=== PATIENT | female | born 2000 | race Caucasian/White ===

== ENCOUNTER 2021-09-10 23:53 | Emergency (ER) | payer MEDICAID ==
[~2021-09-10] VITALS: Ht 167.6 cm; Wt 54.0 kg
[2021-09-11 00:25] LABS: Urine Bacteria FEW /hpf (None Seen); Urine Blood 2+ /uL (Negative); Urine Mucus FEW (None Seen); Urine Specific Gravity 1.021 (1.001-1.035); Urine WBC 380 /hpf (0 - 5)
[2021-09-11] MEDS ORDERED: KETOROLAC TROMETH 30 MG/ML 1ML VIAL IV ONE (03:30)
[2021-09-11] MEDS ORDERED: SODIUM CHLORIDE 0.9% 1,000 ML IV ONE (03:30)
[2021-09-11] MEDS ORDERED: LEVE500T32 PO (06:47)
[2021-09-11] MEDS ORDERED: CEFTRIAXONE SODIUM 2 GM in D5W 5% 50 ML IV ONE ×4 (07:00)
[2021-09-11 07:41] VITALS: BP 105/59
== END 2021-09-11 07:54 | disposition home or self-care (01) ==
LOC: ER 23:53
DX: N12 Tubulo-interstitial nephritis, not specified as acute or chronic (principal); Z32.02 Encounter for pregnancy test, result negative
CPT/HCPCS: 74176; 81001; 81025; 96361; 96374; 99284; J0696; J1885; J7030; J7060

== ENCOUNTER 2022-05-14 15:36 | Emergency (ER) | payer MEDICAID ==
[~2022-05-14] VITALS: Ht 167.6 cm; Wt 55.0 kg
[2022-05-14 17:11] VITALS: BP 120/84
[2022-05-14] MEDS ORDERED: ALBUTEROL SULF 2.5 MG/0.5ML(0.5%) NEB SOLN NEB ONE (17:45)
[2022-05-14] MEDS ORDERED: methylPREDNISolone SOD SUCC 125 MG/2 ML VL IM ONE (17:45)
[2022-05-14] MEDS ORDERED: IPRATROPIUM BROM 0.5 MG/2.5ML INH SOL NEB ONE (17:45)
[2022-05-14] MEDS ORDERED: METH4PAK PO (18:12)
== END 2022-05-14 18:24 | disposition home or self-care (01) ==
LOC: ER 15:36
DX: J45.901 Unspecified asthma with (acute) exacerbation (principal); R07.89 Other chest pain
CPT/HCPCS: 71045; 96372; 99283; J2930; J7644

== ENCOUNTER 2023-05-03 18:43 | Emergency (ER) | payer MEDICAID ==
[~2023-05-03] VITALS: Ht 167.6 cm; Wt 52.1 kg
[~2023-05-03 18:43] MED LIST: METH4PAK PO
[2023-05-03 18:49] VITALS: BP 137/85; PULSE 113; TEMP 99.5
[2023-05-03] MEDS ORDERED: ALBUTEROL MEDNEB 2.5 mg/3ml NEB NEB ONE (20:45)
[2023-05-03] MEDS ORDERED: IPRATROPIUM BROM 0.5 MG/2.5ML INH SOL NEB ONE (20:45)
[2023-05-03 21:07] VITALS: RESP 16; O2SAT 91
[2023-05-03] MEDS ORDERED: ALBUAER3 IN (22:15)
[2023-05-03] MEDS ORDERED: AZITTAB PO (22:15)
[2023-05-03] MEDS ORDERED: BECL80AE11 IN (22:15)
[2023-05-03] MEDS ORDERED: PRED20TA2 PO (22:15)
[2023-05-03] MEDS ORDERED: BENZ200C64 PO (22:15)
[2023-05-03] MEDS ORDERED: ALBU1.258 IN (22:15)
== END 2023-05-03 22:34 | disposition home or self-care (01) ==
LOC: ER 18:43
DX: J45.901 Unspecified asthma with (acute) exacerbation (principal); R07.89 Other chest pain; F17.210 Nicotine dependence, cigarettes, uncomplicated; Z76.0 Encounter for issue of repeat prescription
CPT/HCPCS: 71045; 94640; 99283; J7644

== ENCOUNTER 2023-08-07 11:02 | Emergency (ER) | payer MEDICAID ==
[~2023-08-07] VITALS: Ht 167.6 cm; Wt 53.0 kg
[~2023-08-07 11:02] MED LIST changes: +ALBU1.258 IN; +ALBUAER3 IN; +AZITTAB PO; +BECL80AE11 IN; +BENZ200C64 PO; +PRED20TA2 PO
[2023-08-07 11:27] VITALS: BP 123/96; PULSE 107
[2023-08-07 11:28] LABS: Basophils # (auto) 0 10 ^3/uL (0-0.2); Basophils % (auto) 0.2 % (0.0-2.0); Eosinophils # (auto) 0.5 10 ^3/uL (0-0.8); Eosinophils % (auto) 5.4 % (0.0-7.0); Hematocrit 48.5 % (36.0-46.0); Hemoglobin 16.5 g/dL (12.2-16.2); Lymphocytes # (auto) 0.9 10 ^3/uL (0.4-5.4); Lymphocytes % (auto) 10.5 % (10.0-50.0); Mean Corpuscular Hemoglobin 30.4 pg (28.0-32.0); Mean Corpuscular Volume 89.6 fL (80.0-100.0); Monocytes # (auto) 0.4 10 ^3/uL (0-1.3); Monocytes % (auto) 5.1 % (0.0-12.0); Neutrophils # (auto) 6.9 10 ^3/uL (1.6-8.6); Neutrophils % (auto) 78.8 % (37.0-80.0); Red Blood Cells 5.41 10^6/uL (4.0-5.20); White Blood Cell 8.8 10^3/uL (4.4-10.8)
[2023-08-07] MEDS: methylPREDNISolone SOD SUCC 125 MG/2 ML VL IV ONE (11:29)
[2023-08-07] MEDS: ALBUTEROL SULF 2.5 MG/0.5ML(0.5%) NEB SOLN HHN ONE (11:32)
[2023-08-07] MEDS: IPRATROPIUM BROM 0.5 MG/2.5ML INH SOL HHN ONE (11:32)
[2023-08-07 11:39] LABS: Chloride 107 mmol/L (98-107); Potassium 3.7 mmol/L (3.5-5.1); Sodium 139 mmol/L (136-145)
[2023-08-07 11:40] LABS: Anion Gap 9 (5-15); Carbon Dioxide 23 mmol/L (20-30)
[2023-08-07 11:41] LABS: Calcium 9.8 mg/dL (8.5-10.1)
[2023-08-07 11:45] LABS: BUN/Creatinine Ratio 5.7 (10.0-20.0); Blood Urea Nitrogen 5 mg/dL (9-23); Glucose 106 mg/dL (74-106)
[2023-08-07 14:33] VITALS: RESP 22; O2SAT 95
[2023-08-07] MEDS ORDERED: METH4PAK PO (15:21)
[2023-08-07] MEDS ORDERED: AZITTAB PO (15:21)
== END 2023-08-07 15:19 | disposition left against medical advice (07) ==
LOC: ER 11:02
DX: J45.902 Unspecified asthma with status asthmaticus (principal); F17.210 Nicotine dependence, cigarettes, uncomplicated; F15.90 Other stimulant use, unspecified, uncomplicated
CPT/HCPCS: 36415; 71045; 80048; 85025; 94644; 96374; 99285; J2930; J7644

== ENCOUNTER 2023-08-07 20:48 | Inpatient (IN) | payer MEDICAID ==
[~2023-08-07] VITALS: Ht 167.6 cm; Wt 52.3 kg
[2023-08-07] MEDS: ALBUTEROL SULF 2.5 MG/0.5ML(0.5%) NEB SOLN NEB ONE ×2 (21:30→21:31)
[2023-08-07] MEDS: IPRATROPIUM BROM 0.5 MG/2.5ML INH SOL NEB ONE ×2 (21:30→21:31)
[2023-08-07] MEDS: predniSONE 20 MG TAB PO ONE (23:06)
[2023-08-07 23:38] VITALS: PULSE 151; RESP 26; O2SAT 96
[2023-08-08] VITALS (10 sets, daily range): BP systolic 114–132; BP diastolic 79–90; PULSE 102–155; RESP 15–26; TEMP 98.5–98.7; O2SAT 95–99
[2023-08-08] MEDS ORDERED: TEMAZEPAM 15 MG CAP PO PRN
[2023-08-08] MEDS ORDERED: MORPHINE SULFATE INJ 2 MG/ml SYRG IV PRN
[2023-08-08] MEDS ORDERED: ONDANSETRON HCL 4 MG/2 ML VIAL IV PRN
[2023-08-08] MEDS ORDERED: NITROGLYCERIN 0.4 MG SL TAB SL PRN
[2023-08-08 06:18] LABS: Anion Gap 11 (5-15); Carbon Dioxide 21 mmol/L (20-30); Chloride 105 mmol/L (98-107); Potassium 3.7 mmol/L (3.5-5.1); Sodium 137 mmol/L (136-145)
[2023-08-08 06:19] LABS: Calcium 9.7 mg/dL (8.5-10.1)
[2023-08-08 06:24] LABS: Blood Urea Nitrogen 6 mg/dL (9-23); Glucose 126 mg/dL (74-106)
[2023-08-08] MEDS: ACETAMINOPHEN 325 MG TAB PO PRN (08:12)
[2023-08-08] MEDS: methylPREDNISolone SOD SUCC 125 MG/2 ML VL IV SCH (10:02)
[2023-08-08] MEDS: ALBUTEROL SULF 2.5 MG/0.5ML(0.5%) NEB SOLN NEB PRN ×2 (10:36→16:37)
[2023-08-08] MEDS: IPRATROPIUM BROM 0.5 MG/2.5ML INH SOL NEB PRN ×2 (10:36→16:37)
[2023-08-08] MEDS: PANTOPRAZOLE 40 MG TAB PO ONE (12:28)
[2023-08-08 13:03] LABS: COVID19 ANTIGEN SOFIA FIA NEGATIVE (NEGATIVE)
[2023-08-08 13:05] LABS: Rapid Influenza A Negative (Negative); Rapid Influenza B Negative (Negative)
[2023-08-08 13:57] LABS: Alanine Aminotransferase 20 U/L (7-40); Albumin 4.6 g/dL (3.2-4.8); Alkaline Phosphatase 48 U/L (46-116); Anion Gap 9 (5-15); Aspartate Aminotransferase 16 U/L (13-40); BUN/Creatinine Ratio 13.4 (10.0-20.0); Bilirubin, Total 1.4 mg/dL (0.2-1.0); Blood Urea Nitrogen 11 mg/dL (9-23); Calcium 9.7 mg/dL (8.7-10.4); Carbon Dioxide 23 mmol/L (20-30); Chloride 105 mmol/L (98-107); Glucose 109 mg/dL (74-106); Magnesium 2.2 mg/dL (1.6-2.6); Potassium 4.2 mmol/L (3.5-5.1); Sodium 137 mmol/L (136-145)
[2023-08-08 14:39] LABS: Hematocrit 44.2 % (36.0-46.0); Hemoglobin 14.7 g/dL (12.2-16.2); Mean Corpuscular Hemoglobin 29.4 pg (28.0-32.0); Mean Corpuscular Hgb Conc. 33.2 g/dL (32.0-36.0); Mean Corpuscular Volume 88.4 fL (80.0-100.0); Red Cell Distribution Width 13.1 % (11.8-14.3); White Blood Cell 13.8 10^3/uL (4.4-10.8)
[2023-08-08 14:48] LABS: Basophils % (manual) 0 (0.0-2.0); Blast Cells 0; Eosinophils % (manual) 0 (0-7); Metamyelocytes % 0; Myelocytes % 0; Promyelocytes % 0; Reactive Lymphocytes 0
[2023-08-08 16:55] LABS: Band Neutrophils % (manual) 7; Lymphocytes % (manual) 2 (10.0-50.0); Monocytes % (manual) 1 (0-12); Platelet Estimate Adequate
[2023-08-08] MEDS ORDERED: methylPREDNISolone SOD SUCC 40 MG/ML VL IV SCH (22:00)
[2023-08-09] MEDS ORDERED: PANTOPRAZOLE 40 MG TAB PO SCH (10:00)
== END 2023-08-08 18:00 | disposition left against medical advice (07) | DRG 133 ==
LOC: ER 20:48 → TELE 23:48
PROVIDERS: ADMIT Internal Medicine Geriatric Medicine; ATTEND Internal Medicine Geriatric Medicine
DX: J96.01 Acute respiratory failure with hypoxia (principal); J45.902 Unspecified asthma with status asthmaticus; Z53.29 Procedure and treatment not carried out because of patient's decision for other reasons; F17.210 Nicotine dependence, cigarettes, uncomplicated; Z20.822 Contact with and (suspected) exposure to COVID-19; Z83.3 Family history of diabetes mellitus
CPT/HCPCS: 36415; 80048; 80053; 83036; 83735; 83880; 84484; 84702; 85007; 85027; 87426; 87804; 93005; 94640; 96374; 99291; G0378